=== PATIENT | female | born 1990 | race Caucasian/White ===

== ENCOUNTER → 2020-11-17 12:46 | Outpatient (CLI) | payer BC, SELFPAY ==
[2020-11-17 08:23] VITALS: BMI 28.9
[2020-11-19 20:38] LABS: HPV APTIMA, High Risk Negative (Negative)
== END ==
PROVIDERS: PCP Physician Assistant Medical; Visit Provider Nurse Practitioner Women's Health
DX: Z12.4 Encounter for screening for malignant neoplasm of cervix (principal); N89.8 Other specified noninflammatory disorders of vagina
CPT/HCPCS: 87070; 87205; 87624; 88175; G0145

== ENCOUNTER → 2023-11-08 | Outpatient (CLI) | payer OTHER, SELFPAY ==
--- OUTSIDE RECORDS SUMMARY | 2023-11-08 21:52 | XMS RPT_ITS | CCD ---
Author Name Unknown Address [address] [employer] [facility] [address] [place] [address] Organization [facility] Care Team Providers Care Telesales Manager Name Role Phone Shoaib, Sobeida Admitting Unavailable Shoaib, Sobeida Attending Unavailable OPAL TREVIZO Primary Care Unavailable Kirby Tom Admitting Unavailable Kirby Tom Attending Unavailable OPAL TREVIZO Primary Care Unavailable Shoaib, Sobeida Attending Unavailable OPAL TREVIZO B Primary Care Unavailable Opal Trevizo Unavailable Unavailable Unavailable Opal Trevizo PA-C Primary Care Provider Joseline, Ms. Opal Barrios Referring Unav ailable Joseline, Ms. Opal Barrios Attending Unav ailable Joseline, Ms. Opal Barrios Primary Care Unav ailable Cole, Ms. Amairani Grier Attending Sara vailable Joseline, Ms. Opal Barrios Primary Care Unav ailable Rajesh JOSÉ, Luiz M Unavailable OPAL TREVIZO Attending Unavailable OPAL TREVIZO Primary Care Unavailable OPAL TREVIZO Attending Unavailable OPAL TREVIZO Primary Care Unavailable OPAL TREVIZO Attending Unavailable OPAL TREVIZO B Primary Care Unavailable OPAL TREVIZO B Primary Care Unavailable Allergies Allergy Classification Reported Allergen(s) Allergy Type Date of Onset Reaction(s) Facility (2 sources) Citalopram; Translations: [Citalopram Hydrobromide TABS] Drug Allergy 03-02-[address] [facility] Medicine Work Phone: Medications Current Medications Medication Drug Class(es) Dates Sig (Normalized) Sig (Original) acyclovir 400 mg oral tablet (12 sources) Herpesvirus Nucleoside Analog DNA Polymerase Inhibitor, Herpes Simplex Virus Nucleoside Analog DNA Polymerase Inhibitor, Herpes Zoster Virus Nucleoside Analog DNA Polymerase Inhibitor Start: 09-17-2019 acyclovir (Zovirax) 400 mg tablet Take 1 tablet (400 mg) by mouth. 1 TAB TID PRN 0 09/17/2019 Active busPIRone hydrochloride 10 mg oral tablet (1 source) Start: 07-01-2020 End: 03-02-2021 take 1 tablet by mouth three times daily as needed for anxiety busPIRone HCl - 10 MG Oral Tablet TAKE 1 TABLET 3 times daily PRN anxiety Quantity: 90 Refills: 2 Ordered: 23-Dec-2020 Opal Trevizo PA-C Start : 01-Jul-2020 End : 02-Mar-2021 Complete citalopram 40 mg oral tablet (13 sources) Serotonin Reuptake Inhibitor Start: 09-27-2023 take 1 tablet by mouth once daily citalopram (CeleXA) 40 mg tablet Indications: Situational mixed anxiety and depressive disorder Take 1 tablet (40 mg) by mouth once daily. 30 tablet 11 09/27/2023 Active Completed/Discontinued Medications Medication Drug Class(es) Dates Sig (Normalized) Sig (Original) phentermine hydrochloride 37.5 mg oral tablet (2 sources) Sympathomimetic Amine Anorectic Start: 03-06-2022 take 1 capsule by mouth once daily before breakfast Phentermine HCl - 37.5 MG Oral Tablet TAKE 1 CAPSULE BY MOUTH EVERY DAY IN THE MORNING BEFORE BREAKFAST Quantity: 30 Refills: 0 Ordered: 06-Mar-2022 Luiz Mena MD Start : 06-Mar-2022 Active Problems Active Problems Problem Classification Problem Date Documented Date Episodic/Chronic Adjustment disorders (17 sources) Mixed anxiety and depressive disorder; Translations: [Adjustment disorder with mixed anxiety and depressed mood] Onset: 11-13-2022 03-08-2023 Chronic Contraceptive and procreative management (9 sources) Patient encounter status; Translations: [Unspecified contraceptive management] Episodic Disorders of lipid metabolism (6 sources) Hypercholesterolemia ; Translations: [Pure hypercholesterolemia , unspecified] Onset: 09-27-2023 Resolved: 10-25-2023 09-27-2023 Chronic Headache; including migraine (12 sources) Migraine; Translations: [Migraine, unspecified, without mention of intractable migraine without mention of status migrainosus] Onset: 11-13-2022 11-13-2022 Chronic Nutritional deficiencies (10 sources) Vitamin D deficiency; Translations: [Vitamin D deficiency, unspecified] Onset: 03-08-2023 03-08-2023 Chronic Other female genital disorders (9 sources) History of abnormal cervical Papanicolaou smear ; Translations: [Personal history of other genital system and obstetric disorders] Episodic Past or Other Problems Problem Classification Problem Date Documented Da te Episodic/Chronic Malaise and fatigue (20 sources) Malaise and fatigue; Translations: [Other malaise and fatigue] Onset: 11-13-2022 03-08-2023 Episodic Nutritional deficiencies (8 sources) Decreased vitamin B12 level; Translations: [Deficiency of other specified B group vitamins] Onset: 03-08-2023 03-08-2023 Episodic Other bone disease and musculoskeletal deformities (12 sources) Costal chondritis; Translations: [Tietze's disease] Onset: 11-13-2022 Resolved: 03-08-2023 03-08-2023 Episodic Other nutritional; endocrine; and metabolic disorders (12 sources) Weight gain; Translations: [Abnormal weight gain] Onset: 11-13-2022 11-13-2022 Episodic Residual codes; unclassified (9 sources) Past history of procedure; Translations: [Other postprocedural status] Onset: 11-17-2020 Episodic Results Test Name Value Interpretation Reference Range Facil ity Vital Signs Date Time Vital Sign Value Performing Clinician Ila merritt 10-25-2023 08:24-0500 Body height 157.5 cm Opal Trevizo PA-C Work Phone: [facility] 10-25-2023 08:24-0500 Body mass index (BMI) [Ratio] 37.13 kg/m2 Opal Trevizo PA-C Work Phone: [facility] 10-25-2023 08:24-0500 Body weight 92.08 kg Opal Trevizo PA-C Work Phone: [facility] 10-25-2023 08:24-0500 Diastolic blood pressure 60 mm[Hg] Opal Leicester PA-C Work Phone: [facility] 10-25-2023 08:24-0500 Systolic blood pressure 120 mm[Hg] Opal Joseline PA-C Work Phone: [facility] 09-27-2023 08:09-0500 Body height 157.5 cm Opal Leicester PA-C Work Phone: [facility] 09-27-2023 08:09-0500 Body mass index (BMI) [Ratio] 35.48 kg/m2 Opal Joseline PA-C Work Phone: [facility] 09-27-2023 08:09-0500 Body weight 88 kg Opal Leicester PA-C Work Phone: [facility] 09-27-2023 08:09-0500 Diastolic blood pressure 68 mm[Hg] Opal Joseline PA-C Work Phone: [facility] 09-27-2023 08:09-0500 Heart rate 78 /min Opal Leicester PA-C Work Phone: [facility] 09-27-2023 08:09-0500 SaO2% (BldA) [Mass fraction] 98 % Opal Leicester PA-C Work Phone: [facility] 09-27-2023 08:09-0500 Systolic blood pressure 103 mm[Hg] Opal Joseline PA-C Work Phone: [facility] 03-08-2023 09:21-0400 Body height 157.5 cm Opal Joseline PA-C Work Phone: [facility] 03-08-2023 09:21-0400 Body mass index (BMI) [Ratio] 36.21 kg/m2 Opal Leicester PA-C Work Phone: [facility] 03-08-2023 09:21-0400 Body weight 89.81 kg Opal Joseline PA-C Work Phone: [facility] 03-08-2023 09:21-0400 Diastolic blood pressure 74 mm[Hg] Opal Martinall PA-C Work Phone: [facility] 03-08-2023 09:21-0400 Heart rate 74 /min Opal Martinall PA-C Work Phone: [facility] 03-08-2023 09:21-0400 Systolic blood pressure 108 mm[Hg] Opal Martinall PA-C Work Phone: [facility] 04-10-2022 08:52-0400 Body height 157.48 cm Opal Toney Joseline Work Phone: [facility] Work Phone: 04-10-2022 08:52-0400 Body mass index (BMI) [Ratio] 31.46 kg/m2 Opal Toney Leicester Work Phone: [facility] Work Phone: 04-10-2022 08:52-0400 Body surface area Derived from formula 1.79 m2 Opal Toney Joseline Work Phone: [facility] Work Phone: 04-10-2022 08:52-0400 Body weight 78.02 kg Opal Trevizo Work Phone: [facility] Work Phone: 04-10-2022 08:52-0400 Diastolic blood pressure 74 mm[Hg] Opal Edgeenhall Work Phone: [facility] Work Phone: 04-10-2022 08:52-0400 Heart rate 81 /min Opal Toney MartinLeicester Work Phone: [facility] Work Phone: 04-10-2022 08:52-0400 Systolic blood pressure 108 mm[Hg] Opal Trevizo Work Phone: [facility] Work Phone: 03-06-2022 16:18-0400 Body height 157.48 cm Opal Trevizo Work Phone: [facility] Work Phone: 03-06-2022 16:18-0400 Body mass index (BMI) [Ratio] 31.64 kg/m2 Opal Trevizo Work Phone: [facility] Work Phone: 03-06-2022 16:18-0400 Body surface area Derived from formula 1.8 m2 Opal Trevizo Work Phone: [facility] Work Phone: 03-06-2022 16:18-0400 Body weight 78.47 kg Opal Trevizo Work Phone: [facility] Work Phone: 03-06-2022 16:18-0400 Diastolic blood pressure 68 mm[Hg] Opal Trevizo Work Phone: [facility] Work Phone: 03-06-2022 16:18-0400 Heart rate 70 /min Opal Trevizo Work Phone: [facility] Work Phone: 03-06-2022 16:18-0400 Systolic blood pressure 112 mm[Hg] Opal Trevizo Work Phone: [facility] Work Phone: 02-22-2022 09:55-0400 Body height 157.48 cm Opal Trevizo Work Phone: [facility] Work Phone: 02-22-2022 09:55-0400 Body mass index (BMI) [Ratio] 31.09 kg/m2 Opal Trevizo Work Phone: [facility] Work Phone: 02-22-2022 09:55-0400 Body surface area Derived from formula 1.78 m2 Opal Trevizo Work Phone: [facility] Work Phone: 02-22-2022 09:55-0400 Body weight 77.11 kg Opal Trevizo Work Phone: [facility] Work Phone: 02-22-2022 09:55-0400 Diastolic blood pressure 82 mm[Hg] Opal Trevizo Work Phone: [facility] Work Phone: 02-22-2022 09:55-0400 Heart rate 72 /min Opal Trevizo Work Phone: [facility] Work Phone: 02-22-2022 09:55-0400 Systolic blood pressure 116 mm[Hg] Opal Trevizo Work Phone: [facility] Work Phone: 06-10-2021 08:04-0400 Body height 157.48 cm Opal Trevizo Work Phone: [facility] Work Phone: 06-10-2021 08:04-0400 Body mass index (BMI) [Ratio] 29.45 kg/m2 Opal Trevizo Work Phone: [facility] Work Phone: 06-10-2021 08:04-0400 Body surface area Derived from formula 1.74 m2 Opal Trevizo Work Phone: [facility] Work Phone: 06-10-2021 08:04-0400 Body weight 73.03 kg Opal Trevizo Work Phone: [facility] Work Phone: 06-10-2021 08:04-0400 Diastolic blood pressure 68 mm[Hg] Opal Trevizo Work Phone: [facility] Work Phone: 06-10-2021 08:04-0400 Heart rate 72 /min Opal Trevizo Work Phone: [facility] Work Phone: 06-10-2021 08:04-0400 Systolic blood pressure 100 mm[Hg] Opal Trevizo Work Phone: [facility] Work Phone: 03-02-2021 08:47-0400 Body height 157.48 cm Opal Trevizo Work Phone: [facility] Work Phone: 03-02-2021 08:47-0400 Body mass index (BMI) [Ratio] 28.9 kg/m2 Opal Trevizo Work Phone: [facility] Work Phone: 03-02-2021 08:47-0400 Body surface area Derived from formula 1.73 m2 Opal Trevizo Work Phone: [facility] Work Phone: 03-02-2021 08:47-0400 Body weight 71.67 kg Opal Trevizo Work Phone: [facility] Work Phone: 03-02-2021 08:47-0400 Diastolic blood pressure 70 mm[Hg] Opal Trevizo Work Phone: [facility] Work Phone: 03-02-2021 08:47-0400 Heart rate 60 /min Opal Martinall Work Phone: [facility] Work Phone: 03-02-2021 08:47-0400 SaO2% (BldA) [Mass fraction] 96 % Opal Trevizo Work Phone: [facility] Work Phone: 03-02-2021 08:47-0400 Systolic blood pressure 110 mm[Hg] Opal Trevizo Work Phone: [facility] Work Phone: Encounters Encounter Date Encounter Type Care Provider Facility Start: 10-25-2023 End: 10-25-2023 ambulatory OPAL Ziegler [facility] Ambulatory Start: 10-25-2023 End: 10-25-2023 Office outpatient visit 25 minutes Opal Ziegler Joseline GORDONC Work Phone: [facility] Internal Medicine Procedures Date Procedure Procedure Detail Performing Clinician Start: 10-23-2023 CBC W Auto Different ial panel - Blood OPALJAS EDGEJOSELINE Start: 10-23-2023 Comprehensive metabo lic 2000 panel - Serum or Plasma OPAL EDGEENHALL Start: 10-23-2023 Cyanocobalamin vitamin b-12 OPAL TREVIZO Start: 10-23-2023 Lipid panel OPAL TO DENHALL Start: 10-23-2023 Magnesium [Mass/volu me] in Serum or Plasma OPAL EDGEENHALL Start: 10-23-2023 THYROXINE, FREE OPAL MARTINALL Start: 10-23-2023 VITAMIN D 25-HYDROXY,TOTAL OPAL EDGEENHALL Start: 10-23-2023 Lipid 1996 panel - S addison or Plasma Opal Trevizo PA-C Work Phone: Start: 10-23-2023 Thyrotropin [Units/v olume] in Serum or Plasma Oapl Trevizo PA-C Work Phone: Start: 03-08-2023 Lipid 1996 panel - S addison or Plasma Opal Trevizo PA-C Work Phone: Start: 06-07-2021 Lipid 1995 panel - S addison or Plasma Opal Trevizo PA-C Work Phone: Start: 11-17-2020 Microscopic observat ion [Identifier] in Cervix by Cyto stain Opal Trevizo PA-C Work Phone: Colposcopy Opal penn Work Phone: Plan of Treatment Date Care Activity Detail Author Start: 2040 Zoster Vaccines (1 of 2) Zoste r Vaccines (1 of 2) [facility] Start: 10-23-2028 Lipid panel Lipid Panel [facility] Start: 03-08-2028 Lipid panel Lipid Panel [facility] Start: 06-07-2026 Lipid panel Lipid Panel [facility] Start: 10-23-2024 Thyroid stimulating hormone measurement TSH Level [facility] Start: 03-09-2024 Yearly Adult Physical Yearly Adult P hysical [facility] Start: 01-29-2024 End: 01-29-2024 Patient encounter procedure 01/29/2024 8:00 AM EDT Office Visit [facility] [address] [place] [id number] Opal Trevizo PA-C [address] [place] [address] [facility] Start: 01-23-2024 End: 10-24-2024 25-hydroxyvitamin D3 [Mass/volume] in Serum or Plasma Vitamin D 25-Hydroxy,Total (for eval of Vitamin D levels) Lab Routine Vitamin D deficiency Expected: 01/23/2024 (Approximate), Expires: 10/24/2024 [facility] Work Phone: Immunizations Immunization Date Immunization Notes Care Provider Fa cility 01-20-2021 Moderna COVID-19 Vaccine 100 MCG/0.5ML Intramuscular Suspension Opal Trevizo Work Phone: [facility] 12-22-2020 Moderna COVID-19 Vaccine 100 MCG/0.5ML Intramuscular Suspension Opal Trevizo Work Phone: [facility] Work Phone: Payers Date Payer Category Payer Private Health Insurance [employer] [id number] 2023-Present [id number] [place] [id number] 2023 Private Health Insurance [id number] 2019 Unknown [id number] 2018 Unknown 1990 Unknown [id number] 1990 Unknown [id number] 1990 Unknown [id number] 1990 Unknown [id number] 1990 Unknown [id number] 1990 Unknown [id number] 1990 Unknown [id number] 1990 Unknown [id number] 1990 Unknown [id number] Social History Date Type Detail Facility Start: 03-08-2023 End: 09-27-2023 Non-smoker Non-smoker [facility] Start: 11-13-2022 Tobacco smoking stat [facility] Never smoked tobacco [facility] Work Phone: Start: 11-13-2022 Tobacco use and exposure Smokeless tobacco non-user [facility] Work Phone: Start: 03-08-2023 End: 10-25-2023 Alcohol intake Lifetime non-drinker (finding) [facility] Work Phone: Start: 03-08-2023 End: 09-27-2023 Tobacco use panel [facility] Start: 1990 Sex Assigned At Not on file [facility] Work Phone: Start: 02-26-2023 End: 10-25-2023 Exposure to SARS-CoV-2 (event) Not sure [facility] History of Present illness Narrative 10-25-2023 Opal Trevizo PA-C - 10/25/2023 8:20 AM EST Note Date & Type Note Facility 10-25-2023 History of Present illness Narrative Subjective Patient ID: Ariana Ash is a 33 y.o. female who presents for Follow-up (1 MONTH FOLLOW UP) HPI -Labs - - med check herpes -stable on acyclovir prn. - denies needing new script mood celexa - doing well - Vit D - 1/week B12 - stop x 1-2 mo and then consider starting few times/week -Preventative Testing y PAP - Following with [facility] last PAP -2021- Dang Balderrama - [facility] Mammo- fam hx of breast Cancer but in older age - suggest age 40 DEXA - suggest 55 Colonoscopy - Suggest age 45-50 Fall - No AUG 2023 PHQ2 - No Aug 2023 -Other Providers [facility] - [facility]ang Balderrama EYE- visit set in Mar - follows annually Dentist - every 6 months Patient Active Problem List Diagnosis Borderline high cholesterol Herpes simplex Malaise and fatigue Migraine Situational mixed anxiety and depressive disorder Weight gain Low vitamin B12 level Vitamin D deficiency Class 2 obesity due to excess calories without serious comorbidity with body mass index (BMI) of 35.0 to 35.9 in adult Review of Systems Constitutional: Positive for fatigue. Negative for chills and fever. HENT: Negative for congestion, rhinorrhea, sinus pain, sore throat and tinnitus. Eyes: Negative for discharge, redness and visual disturbance. Respiratory: Negative for cough, chest tightness, shortness of breath and wheezing. Cardiovascular: Negative for chest pain, palpitations and leg swelling. Gastrointestinal: Negative for abdominal pain, constipation, diarrhea, nausea and vomiting. Endocrine: Negative for cold intolerance and heat intolerance. Genitourinary: Negative for flank pain, frequency and urgency. Musculoskeletal: Negative for back pain, gait problem and neck pain. Skin: Negative for rash and wound. Neurological: Negative for dizziness, tremors, syncope, numbness and headaches. Hematological: Does not bruise/bleed easily. Psychiatric/Behavioral: Positive for dysphoric mood. Negative for confusion, sleep disturbance and suicidal ideas. The patient is nervous/anxious. Past Medical History: Diagnosis Date Encounter for gynecological examination (general) (routine) without abnormal findings Pap test, as part of routine gynecological examination High thyroid stimulating hormone (TSH) level 10/25/2023 Hypercholesterolemia 10/25/2023 Other conditions influencing health status Menarche Other specified postprocedural states History of Papanicolaou smear Personal history of other diseases of the female genital tract History of abnormal cervical Papanicolaou smear Past Surgical History: Procedure Laterality Date COLPOSCOPY 11/22/2012 Family History Problem Relation Name Age of Onset Thyroid disease Mother No Known Problems Father Emphysema Other Breast cancer Other Social History Tobacco Use Smoking status: Never Smokeless tobacco: Never Vaping Use Vaping Use: Never used Substance Use Topics Alcohol use: Never Drug use: Never No Known Allergies Current Outpatient Medications Medication Sig Dispense Refill acyclovir (Zovirax) 400 mg tablet Take 1 tablet (400 mg) by mouth. 1 TAB TID PRN citalopram (CeleXA) 40 mg tablet Take 1 tablet (40 mg) by mouth once daily. 30 tablet 11 cyanocobalamin (Vitamin B-12) 1,000 mcg tablet Take 1 tablet (1,000 mcg) by mouth once daily. 30 tablet 11 ergocalciferol (Vitamin D-2) 1.25 MG (91583 UT) capsule Take 1 capsule (50,000 Units) by mouth 1 (one) time per week. 5 capsule 11 No current facility-administered medications for this visit. Objective BP 120/60 Ht 1.575 m (5' 2 ) Wt 92.1 kg (203 lb) BMI 37.13 kg/m Physical Exam Vitals reviewed. Constitutional: Appearance: Normal appearance. She is obese. HENT: Head: Normocephalic. Right Ear: External ear normal. Left Ear: External ear normal. Nose: Nose normal. No congestion or rhinorrhea. Mouth/Throat: Mouth: Mucous membranes are moist. Eyes: Extraocular Movements: Extraocular movements intact. Conjunctiva/sclera: Conjunctivae normal. Pupils: Pupils are equal, round, and reactive to light. Cardiovascular: Rate and Rhythm: Normal rate and regular rhythm. Pulses: Normal pulses. Pulmonary: Effort: Pulmonary effort is normal. Breath sounds: Normal breath sounds. Abdominal: General: Bowel sounds are normal. Palpations: Abdomen is soft. Tenderness: There is no abdominal tenderness. There is no right CVA tenderness or left CVA tenderness. Musculoskeletal: General: No tenderness. Normal range of motion. Cervical back: Normal range of motion and neck supple. No tenderness. Skin: General: Skin is warm and dry. Neurological: General: No focal deficit present. Mental Status: She is alert and oriented to person, place, and time. Psychiatric: Mood and Affect: Mood normal. Behavior: Behavior normal. Testing Component Latest Ref [facility] 10/23/2023 WBC 4.4 - 11.3 x10*3/uL 8.9 nRBC 0.0 - 0.0 /100 WBCs 0.0 RBC 4.00 - 5.20 x10*6/uL 4.72 HEMOGLOBIN 12.0 - 16.0 g/dL 13.5 HEMATOCRIT 36.0 - 46.0 % 41.1 MCV 80 - 100 fL 87 MCH 26.0 - 34.0 pg 28.6 MCHC 32.0 - 36.0 g/dL 32.8 RED CELL DISTRIBUTION WIDTH 11.5 - 14.5 % 12.7 Platelets 150 - 450 x10*3/uL 390 Neutrophils % 40.0 - 80.0 % 58.8 Immature Granulocytes %, Automated 0.0 - 0.9 % 0.6 Lymphocytes % 13.0 - 44.0 % 26.5 Monocytes % 2.0 - 10.0 % 7.7 Eosinophils % 0.0 - 6.0 % 5.5 Basophils % 0.0 - 2.0 % 0.9 Neutrophils Absolute 1.20 - 7.70 x10*3/uL 5.25 Immature Granulocytes Absolute, Automated 0.00 - 0.70 x10*3/uL 0.05 Lymphocytes Absolute 1.20 - 4.80 x10*3/uL 2.37 Monocytes Absolute 0.10 - 1.00 x10*3/uL 0.69 Eosinophils Absolute 0.00 - 0.70 x10*3/uL 0.49 Basophils Absolute 0.00 - 0.10 x10*3/uL 0.08 GLUCOSE 74 - 99 mg/dL 87 SODIUM 136 - 145 mmol/L 138 POTASSIUM 3.5 - 5.3 mmol/L 4.2 CHLORIDE 98 - 107 mmol/L 103 Bicarbonate 21 - 32 mmol/L 26 Anion Gap 10 - 20 mmol/L 13 Blood Urea Nitrogen 6 - 23 mg/dL 18 Creatinine 0.50 - 1.05 mg/dL 0.71 EGFR >60 mL/min/1.73m*2 >90 Calcium 8.6 - 10.3 mg/dL 8.9 Albumin 3.4 - 5.0 g/dL 4.1 Alkaline Phosphatase 33 - 110 U/L 62 Total Protein 6.4 - 8.2 g/dL 6.9 AST 9 - 39 U/L 20 Bilirubin Total 0.0 - 1.2 mg/dL 0.3 ALT 7 - 45 U/L 18 CHOLESTEROL 0 - 199 mg/dL 193 HDL CHOLESTEROL mg/dL 60.0 Cholesterol/HDL Ratio 3.2 LDL Calculated <=99 mg/dL 115 (H) VLDL 0 - 40 mg/dL 18 TRIGLYCERIDES 0 - 149 mg/dL 91 Non HDL Cholesterol 0 - 149 mg/dL 133 Vitamin B12 211 - 911 pg/mL 1,235 (H) Vitamin D, 25-Hydroxy, Total 30 - 100 ng/mL 36 Thyroid Stimulating Hormone 0.44 - 3.98 mIU/L 4.64 (H) Thyroxine, Free 0.61 - 1.12 ng/dL 0.56 (L) MAGNESIUM 1.60 - 2.40 mg/dL 2.03 Impression MDM 1) COMPLEXITY: MORE THAN 1 STABLE CHRONIC CONDITION ADDRESSED 2)DATA: TESTS INTERPRETED AND OR ORDERED, TOOK INDEPENDENT HISTORY OR RECORDS REVIEWED 3)RISK: MODERATE RISK DUE TO NATURE OF MEDICAL CONDITIONS/COMORBIDITY OR MEDICATIONS ORDERED OR SURGICAL OR PROCEDURE REFERRAL, . Reviewed labs and Testing on file Patient to follow diet low in cholesterol, fat, and sodium. Patient is advised to increase Exercise. Patient is recommended to lose weight. Reviewed Meds and discussed common side effects Continue as directed Thyroid - improved but still off and given symptoms would like to do a trial start of meds B12 - hold meds x few mo then start every other day Mood - cont on meds Patient is strongly advised to be compliant with recommendations. Return to Clinic sooner if needed. Patient denies further questions/concerns at this time Assessment/Plan Problem List Items Addressed This Visit ICD-10-CM Situational mixed anxiety and depressive disorder F43.23 Low vitamin B12 level R79.89 Relevant Orders Vitamin B12 Vitamin D deficiency E55.9 Relevant Orders Vitamin D 25-Hydroxy,Total (for eval of Vitamin D levels) Class 2 obesity due to excess calories without serious comorbidity with body mass index (BMI) of 37.0 to 37.9 in adult E66.09, Z68.37 Acquired hypothyroidism - Primary E03.9 Relevant Medications levothyroxine (Synthroid, Levoxyl) 25 mcg tablet Other Relevant Orders Thyroid Stimulating Hormone Thyroxine, Free FU in 3-4 mo with labs and med check documented in this encounter [facility] Work Phone: History of Present illness Narrative 09-27-2023 Opal Trevizo PA-C - 09/27/2023 8:00 AM EST Note Date & Type Note Facility 09-27-2023 History of Present illness Narrative Subjective Patient ID: Ariana Ash is a 33 y.o. female who presents for Follow-up (6 MONTH F/U WITH LABS. NO CONCERNS) HPI -Labs - not done - she did do labs the same day as her last visit and states not all labs were processed at that time - med check herpes -stable on acyclovir prn. - denies needing new script mood celexa - doing well - has been taking 20 mg and would like to inc Vit D B12 - -Preventative Testing y PAP - Following with [facility] last PAP -2021- Dang Balderrama - [place] [facility]- fam hx of breast Cancer but in older age - suggest age 40 DEXA - suggest 55 Colonoscopy - Suggest age 45-50 Fall - No AUG 2023 PHQ2 - No Aug 2023 -Other Providers [facility] - [facility]ang Balderrama EYE- visit set in Mar - follows annually Dentist - every 6 months Patient Active Problem List Diagnosis Borderline high cholesterol Herpes simplex Malaise and fatigue Migraine Situational mixed anxiety and depressive disorder Weight gain Low vitamin B12 level Vitamin D deficiency Class 2 obesity due to excess calories without serious comorbidity with body mass index (BMI) of 36.0 to 36.9 in adult Review of Systems Constitutional: Positive for fatigue. Negative for chills and fever. HENT: Negative for congestion, rhinorrhea, sinus pain, sore throat and tinnitus. Eyes: Negative for discharge, redness and visual disturbance. Respiratory: Negative for cough, chest tightness, shortness of breath and wheezing. Cardiovascular: Negative for chest pain, palpitations and leg swelling. Gastrointestinal: Negative for abdominal pain, constipation, diarrhea, nausea and vomiting. Endocrine: Negative for cold intolerance and heat intolerance. Genitourinary: Negative for flank pain, frequency and urgency. Musculoskeletal: Negative for back pain, gait problem and neck pain. Skin: Negative for rash and wound. Neurological: Negative for dizziness, tremors, syncope, numbness and headaches. Hematological: Does not bruise/bleed easily. Psychiatric/Behavioral: Positive for dysphoric mood. Negative for confusion, sleep disturbance and suicidal ideas. The patient is nervous/anxious. Past Medical History: Diagnosis Date Encounter for gynecological examination (general) (routine) without abnormal findings Pap test, as part of routine gynecological examination Other conditions influencing health status Menarche Other specified postprocedural states History of Papanicolaou smear Personal history of other diseases of the female genital tract History of abnormal cervical Papanicolaou smear Past Surgical History: Procedure Laterality Date COLPOSCOPY 11/22/2012 Family History Problem Relation Name Age of Onset Thyroid disease Mother No Known Problems Father Emphysema Other Breast cancer Other Social History Tobacco Use Smoking status: Never Smokeless tobacco: Never Vaping Use Vaping Use: Never used Substance Use Topics Alcohol use: Never Drug use: Never No Known Allergies Current Outpatient Medications Medication Sig Dispense Refill acyclovir (Zovirax) 400 mg tablet Take 1 tablet (400 mg) by mouth. 1 TAB TID PRN citalopram (CeleXA) 10 mg tablet Take 1 tablet (10 mg) by mouth once daily. 30 tablet 11 cyanocobalamin (Vitamin B-12) 1,000 mcg tablet Take 1 tablet (1,000 mcg) by mouth once daily. 30 tablet 11 ergocalciferol (Vitamin D-2) 1.25 MG (19532 UT) capsule Take 1 capsule (50,000 Units) by mouth 1 (one) time per week. 5 capsule 11 No current facility-administered medications for this visit. Objective BP 103/68 Pulse 78 Ht 1.575 m (5' 2 ) Wt 88 kg (194 lb) SpO2 98% BMI 35.48 kg/m Physical Exam Vitals reviewed. Constitutional: Appearance: Normal appearance. She is obese. HENT: Head: Normocephalic. Right Ear: External ear normal. Left Ear: External ear normal. Nose: Nose normal. No congestion or rhinorrhea. Mouth/Throat: Mouth: Mucous membranes are moist. Eyes: Extraocular Movements: Extraocular movements intact. Conjunctiva/sclera: Conjunctivae normal. Pupils: Pupils are equal, round, and reactive to light. Cardiovascular: Rate and Rhythm: Normal rate and regular rhythm. Pulses: Normal pulses. Pulmonary: Effort: Pulmonary effort is normal. Breath sounds: Normal breath sounds. Abdominal: General: Bowel sounds are normal. Palpations: Abdomen is soft. Tenderness: There is no abdominal tenderness. There is no right CVA tenderness or left CVA tenderness. Musculoskeletal: General: No tenderness. Normal range of motion. Cervical back: Normal range of motion and neck supple. No tenderness. Skin: General: Skin is warm and dry. Neurological: General: No focal deficit present. Mental Status: She is alert and oriented to person, place, and time. Psychiatric: Mood and Affect: Mood normal. Behavior: Behavior normal. Testing Component Latest Ref [facility] 03/08/2023 WBC 4.4 - 11.3 x10E9/L 7.9 RBC 4.00 - 5.20 x10E12/L 4.97 HEMOGLOBIN 12.0 - 16.0 g/dL 14.2 HEMATOCRIT 36.0 - 46.0 % 44.2 MCV 80 - 100 fL 89 MCHC 32.0 - 36.0 g/dL 32.1 Platelets 150 - 450 x10E9/L 354 RED CELL DISTRIBUTION WIDTH 11.5 - 14.5 % 12.8 Neutrophils % 40.0 - 80.0 % 55.1 Immature Granulocytes %, Automated 0.0 - 0.9 % 0.8 Lymphocytes % 13.0 - 44.0 % 30.2 Monocytes % 2.0 - 10.0 % 8.8 Eosinophils % 0.0 - 6.0 % 4.2 Basophils % 0.0 - 2.0 % 0.9 Neutrophils Absolute 1.20 - 7.70 x10E9/L 4.35 Lymphocytes Absolute 1.20 - 4.80 x10E9/L 2.38 Monocytes Absolute 0.10 - 1.00 x10E9/L 0.69 Eosinophils Absolute 0.00 - 0.70 x10E9/L 0.33 Basophils Absolute 0.00 - 0.10 x10E9/L 0.07 GLUCOSE 74 - 99 mg/dL 86 SODIUM 136 - 145 mmol/L 136 POTASSIUM 3.5 - 5.3 mmol/L 4.5 CHLORIDE 98 - 107 mmol/L 104 Bicarbonate 21 - 32 mmol/L 26 Anion Gap 10 - 20 mmol/L 11 Blood Urea Nitrogen 6 - 23 mg/dL 21 Creatinine 0.50 - 1.05 mg/dL 0.70 GFR Female >90 mL/min/1.73m2 >90 Calcium 8.6 - 10.3 mg/dL 9.5 Albumin 3.4 - 5.0 g/dL 4.5 Alkaline Phosphatase 33 - 110 U/L 57 Total Protein 6.4 - 8.2 g/dL 7.3 AST 9 - 39 U/L 20 Bilirubin Total 0.0 - 1.2 mg/dL 0.3 ALT 7 - 45 U/L 18 CHOLESTEROL 0 - 199 mg/dL 219 (H) HDL CHOLESTEROL mg/dL 67.0 Cholesterol/HDL Ratio 3.3 LDL Calculated 0 - 99 mg/dL 132 (H) VLDL 0 - 40 mg/dL 20 TRIGLYCERIDES 0 - 149 mg/dL 99 IRON 35 - 150 ug/dL 72 TIBC 240 - 445 ug/dL 423 % Saturation 25 - 45 % 17 (L) Hemoglobin A1C % 5.3 Estimated Average Glucose MG/DL 105 Vitamin D, 25-Hydroxy, Total ng/mL 31 FOLATE >5.0 ng/mL 16.6 Vitamin B12 211 - 911 pg/mL 358 FERRITIN 8 - 150 ug/L 81 Insulin 3 - 25 uIU/mL 20 Thyroxine 4.5 - 11.1 ug/dL 6.0 Triiodothyronine 60 - 200 ng/dL 148 Thyroid Stimulating Hormone 0.44 - 3.98 mIU/L 6.23 (H) Thyroxine, Free 0.61 - 1.12 ng/dL 0.60 (L) Impression MDM 1) COMPLEXITY: MORE THAN 1 STABLE CHRONIC CONDITION ADDRESSED 2)DATA: TESTS INTERPRETED AND OR ORDERED, TOOK INDEPENDENT HISTORY OR RECORDS REVIEWED 3)RISK: MODERATE RISK DUE TO NATURE OF MEDICAL CONDITIONS/COMORBIDITY OR MEDICATIONS ORDERED OR SURGICAL OR PROCEDURE REFERRAL, . Reviewed labs and Testing on file Patient to follow diet low in cholesterol, fat, and sodium. Patient is advised to increase Exercise. Patient is recommended to lose weight. Reviewed Meds and discussed common side effects Continue as directed Advised we get updated labs given thyroid labs and some of her symptoms Recheck vit levels since starting supplement Celexa - inc to 40 Patient is strongly advised to be compliant with recommendations. Return to Clinic sooner if needed. Patient denies further questions/concerns at this time Assessment/Plan Problem List Items Addressed This Visit ICD-10-CM Situational mixed anxiety and depressive disorder F43.23 Relevant Medications citalopram (CeleXA) 40 mg tablet Low vitamin B12 level R79.89 Relevant Orders Vitamin B12 Vitamin D deficiency - Primary E55.9 Relevant Orders Vitamin D 25-Hydroxy,Total (for eval of Vitamin D levels) Class 2 obesity due to excess calories without serious comorbidity with body mass index (BMI) of 35.0 to 35.9 in adult E66.09, Z68.35 Other Visit Diagnoses Codes Hypercholesteremia E78.00 Relevant Orders CBC and Auto Differential Comprehensive Metabolic Panel Lipid Panel Thyroid Stimulating Hormone Thyroxine, Free Magnesium Vitamin B12 Vitamin D 25-Hydroxy,Total (for eval of Vitamin D levels) Elevated TSH R79.89 Relevant Orders Thyroid Stimulating Hormone Thyroxine, Free FU in 1-4 weeks with labs at [facility] fasting and med check documented in this encounter [facility] Work Phone: History of Present illness Narrative 03-08-2023 Opal Trevizo PA-C - 03/08/2023 9:20 AM EDT Note Date & Type Note Facility 03-08-2023 History of Present illness Narrative Subjective Patient ID: Ariana Ash is a 32 y.o. female who presents for annual wellness (Rev labs ) HPI Wellness -Labs - med check herpes -stable on acyclovir prn. - denies needing new script mood celexa - doing well -Preventative Testing y PAP - Following with [facility] last PAP -2021- Dang Valencias - [place] [facility]- fam hx of breast Cancer but in older age - suggest age 40 DEXA - suggest 55 Colonoscopy - Suggest age 45-50 Fall - No February 2023 PHQ2 - No February 2023 -Other Providers [facility] - [facility] Balderrama E[facility]- visit set in Mar - follows annually Dentist - every 6 months -Vaccinations Flu - declines PNA- suggest age 65 Tdap -2018? Hep B - low risk MMR - vaccine as a child Shingles - suggest age 50 Covid - first 2 shots Patient Active Problem List Diagnosis Borderline high cholesterol Costochondritis, acute Herpes simplex Malaise and fatigue Migraine Situational mixed anxiety and depressive disorder Weight gain Review of Systems Constitutional: Positive for fatigue. Negative for chills and fever. HENT: Negative for congestion, rhinorrhea, sinus pain, sore throat and tinnitus. Eyes: Negative for discharge, redness and visual disturbance. Respiratory: Negative for cough, chest tightness, shortness of breath and wheezing. Cardiovascular: Negative for chest pain, palpitations and leg swelling. Gastrointestinal: Negative for abdominal pain, constipation, diarrhea, nausea and vomiting. Endocrine: Negative for cold intolerance and heat intolerance. Genitourinary: Negative for flank pain, frequency and urgency. Musculoskeletal: Negative for back pain, gait problem and neck pain. Skin: Negative for rash and wound. Neurological: Negative for dizziness, tremors, syncope, numbness and headaches. Hematological: Does not bruise/bleed easily. Psychiatric/Behavioral: Negative for confusion, sleep disturbance and suicidal ideas. Past Medical History: Diagnosis Date Encounter for gynecological examination (general) (routine) without abnormal findings Pap test, as part of routine gynecological examination Other conditions influencing health status Menarche Other specified postprocedural states History of Papanicolaou smear Personal history of other diseases of the female genital tract History of abnormal cervical Papanicolaou smear Past Surgical History: Procedure Laterality Date COLPOSCOPY 11/22/2012 Family History Problem Relation Name Age of Onset Thyroid disease Mother No Known Problems Father Emphysema Other Breast cancer Other Social History Tobacco Use Smoking status: Never Smokeless tobacco: Never Substance Use Topics Alcohol use: Never Drug use: Never No Known Allergies Current Outpatient Medications Medication Sig Dispense Refill acyclovir (Zovirax) 400 mg tablet Take 1 tablet (400 mg) by mouth. 1 TAB TID PRN citalopram (CeleXA) 10 mg tablet Take 1 tablet (10 mg) by mouth once daily. 30 tablet 0 No current facility-administered medications for this visit. Objective BP 108/74 (BP Location: Left arm, Patient Position: Sitting) Pulse 74 Ht 1.575 m (5' 2 ) Wt 89.8 kg (198 lb) BMI 36.21 kg/m Physical Exam Vitals reviewed. Constitutional: Appearance: Normal appearance. She is obese. HENT: Head: Normocephalic. Right Ear: External ear normal. Left Ear: External ear normal. Nose: Nose normal. No congestion or rhinorrhea. Mouth/Throat: Mouth: Mucous membranes are moist. Eyes: Extraocular Movements: Extraocular movements intact. Conjunctiva/sclera: Conjunctivae normal. Pupils: Pupils are equal, round, and reactive to light. Cardiovascular: Rate and Rhythm: Normal rate and regular rhythm. Pulses: Normal pulses. Pulmonary: Effort: Pulmonary effort is normal. Breath sounds: Normal breath sounds. Abdominal: General: Bowel sounds are normal. Palpations: Abdomen is soft. Tenderness: There is no abdominal tenderness. There is no right CVA tenderness or left CVA tenderness. Musculoskeletal: General: No tenderness. Normal range of motion. Cervical back: Normal range of motion and neck supple. No tenderness. Skin: General: Skin is warm and dry. Neurological: General: No focal deficit present. Mental Status: She is alert and oriented to person, place, and time. Psychiatric: Mood and Affect: Mood normal. Behavior: Behavior normal. Testing Component Latest Ref [facility] 03/08/2023 WBC 4.4 - 11.3 x10E9/L 7.9 RBC 4.00 - 5.20 x10E12/L 4.97 HEMOGLOBIN 12.0 - 16.0 g/dL 14.2 HEMATOCRIT 36.0 - 46.0 % 44.2 MCV 80 - 100 fL 89 MCHC 32.0 - 36.0 g/dL 32.1 Platelets 150 - 450 x10E9/L 354 RED CELL DISTRIBUTION WIDTH 11.5 - 14.5 % 12.8 Neutrophils % 40.0 - 80.0 % 55.1 Immature Granulocytes %, Automated 0.0 - 0.9 % 0.8 Lymphocytes % 13.0 - 44.0 % 30.2 Monocytes % 2.0 - 10.0 % 8.8 Eosinophils % 0.0 - 6.0 % 4.2 Basophils % 0.0 - 2.0 % 0.9 Neutrophils Absolute 1.20 - 7.70 x10E9/L 4.35 Lymphocytes Absolute 1.20 - 4.80 x10E9/L 2.38 Monocytes Absolute 0.10 - 1.00 x10E9/L 0.69 Eosinophils Absolute 0.00 - 0.70 x10E9/L 0.33 Basophils Absolute 0.00 - 0.10 x10E9/L 0.07 Hemoglobin A1C % 5.3 Estimated Average Glucose MG/DL 105 Vitamin D, 25-Hydroxy, Total ng/mL 31 FOLATE >5.0 ng/mL 16.6 Vitamin B12 211 - 911 pg/mL 358 Impression MDM 1) COMPLEXITY: MORE THAN 1 STABLE CHRONIC CONDITION ADDRESSED 2)DATA: TESTS INTERPRETED AND OR ORDERED, TOOK INDEPENDENT HISTORY OR RECORDS REVIEWED 3)RISK: MODERATE RISK DUE TO NATURE OF MEDICAL CONDITIONS/COMORBIDITY OR MEDICATIONS ORDERED OR SURGICAL OR PROCEDURE REFERRAL, . Reviewed labs and Testing on file Patient to follow diet low in cholesterol, fat, and sodium. Patient is advised to increase Exercise. Patient is recommended to lose weight. Reviewed Meds and discussed common side effects Continue as directed Vit D - start weekly supplement and repeat in 3-6 mo B12 - start daily supplement and repeat in 3-6 mo Cont with specialists Pt to call for remaining lab results that were not back - CMP and lipid Aim for wellness in 1 year if approp based on labs Patient is strongly advised to be compliant with recommendations. Return to Clinic sooner if needed. Patient denies further questions/concerns at this time Assessment/Plan Problem List Items Addressed This Visit Malaise and fatigue Situational mixed anxiety and depressive disorder Relevant Medications citalopram (CeleXA) 10 mg tablet Low vitamin B12 level Relevant Medications cyanocobalamin (Vitamin B-12) 1,000 mcg tablet Other Relevant Orders Vitamin B12 Vitamin D deficiency Relevant Medications ergocalciferol (Vitamin D-2) 1.25 MG (77850 UT) capsule Other Relevant Orders Vitamin D, Total Class 2 obesity due to excess calories without serious comorbidity with body mass index (BMI) of 36.0 to 36.9 in adult Other Visit Diagnoses Encounter for wellness examination in adult - Primary FU in 6 mo with labs at [facility] non fasting documented in this encounter [facility] Work Phone: History of Present illness Narrative 02-22-2022 Note Date & Type Note Facility 02-22-2022 History of Present illness Narrative Patient presents today for...1 med checkherpes -stable on acyclovir prn. - denies needing new scriptmoodcelexa - doing well2 wt gain x 4-5 [id number] lbshe denies change in diet and ex and she does work out routinelyshe denies labs being done recentlyshe is working on diet and ex and states has lost a few lbshe did follow a diet and lost weight but has gained it back and in the past month has gained another 10 lb s -[facility] Work Phone: Evaluation note Note Date & Type Note Facility documented in this encounter [facility] Work Phone: Evaluation note Note Date & Type Note Facility documented in this encounter [facility] Work Phone: Evaluation note Note Date & Type Note Facility documented in this encounter [facility] Work Phone: History of Present illness Narrative Note Date & Type Note Facility History of Present illness Narrative Patient presents today for...1 to Review labsnot done2 med checkherpes -stable on acyclovir prn.BCP - stable on meds and following with [facility] -dr pryorpt denies hx of anxiety or depression but states she is anxious, jumpy and notes changes in behavior and overwhelmed with stress at work and the world situationshe denies being on meds in the past for moodshe was started on celexa and buspar jun 2020she was doing well with these meds but has been out of buspar for a whilept states she started taking the buspar and this made her dizzy and nauseous so she stopped and started taking and old dose of celexa and feels like things are started to settle down2 L sided pain x 1 mopt states located under her ribs and aggravated with cough sneezingcan radiate into her backpt denies any recent illnesspt denies any known heavy lifting but she does work out and liftsshe questioned if she pulled something and rested it but states not any better- getting worsept denies any known aggravation with food, no N/V or BM changes, no feverpt denies hx fo allergies or underlying dx of asthma/COPDpt denies trying topicals, ice/heat, ibuprofen, or tylenol3 wt gain x 4-5 [id number] lbshe denies change in diet and ex and she does work out routinelyshe denies labs being done recently [facility] Work Phone: History of Present illness Narrative Note Date & Type Note Facility History of Present illness Narrative OPAL TREVIZO, LOUISA PATIENT THAT Presents today for 3 MONTH SA LAB F/U. NO NEW COMPLAINTSLDL- SLIGHTLY ELEVATED. DIET MODIFICATIONS DISCUSSEDANXIETY/DEPRESSION- STABLE. MED REFILL [facility] Work Phone: History of Present illness Narrative Note Date & Type Note Facility History of Present illness Narrative C/O WEIGHT GAIN, HAS TRIED DIET AND EXERCISE AND FAILED [facility] Work Phone: Summary Purpose Family History No Family History Records FoundUnknown Family Member Name Dates Details Family history of thyroid di sease: Mother(V18.19, Z83.49) Status:Active No pertinent family history: Father(V49.89, Z78.9) Status:Active Family history of emphysema: Grandparent(V17.6, Z82.5) Status:Active Family history of malignant neoplasm of female breast: Grandparent(V16.3, Z80.3) Status:Active Unknown Family Member Name Dates Details Family history of thyroid di sease: Mother(V18.19, Z83.49) Status:Active No pertinent family history: Father(V49.89, Z78.9) Status:Active Family history of emphysema: Grandparent(V17.6, Z82.5) Status:Active Family history of malignant neoplasm of female breast: Grandparent(V16.3, Z80.3) Status:Active Unknown Family Member Name Dates Details Family history of thyroid di sease: Mother(V18.19, Z83.49) Status:Active No pertinent family history: Father(V49.89, Z78.9) Status:Active Family history of emphysema: Grandparent(V17.6, Z82.5) Status:Active Family history of malignant neoplasm of female breast: Grandparent(V16.3, Z80.3) Status:Active Unknown Family Member Name Dates Details Family history of thyroid di sease: Mother(V18.19, Z83.49) Status:Active No pertinent family history: Father(V49.89, Z78.9) Status:Active Family history of emphysema: Grandparent(V17.6, Z82.5) Status:Active Family history of malignant neoplasm of female breast: Grandparent(V16.3, Z80.3) Status:Active Unknown Family Member Name Dates Details Family history of thyroid di sease: Mother(V18.19, Z83.49) Status:Active No pertinent family history: Father(V49.89, Z78.9) Status:Active Family history of emphysema: Grandparent(V17.6, Z82.5) Status:Active Family history of malignant neoplasm of female breast: Grandparent(V16.3, Z80.3) Status:Active Unknown Family Member Name Dates Details Family history of thyroid di sease: Mother(V18.19, Z83.49) Status:Active No pertinent family history: Father(V49.89, Z78.9) Status:Active Family history of emphysema: Grandparent(V17.6, Z82.5) Status:Active Family history of malignant neoplasm of female breast: Grandparent(V16.3, Z80.3) Status:Active Unknown Family Member Name Dates Details Family history of thyroid di sease: Mother(V18.19, Z83.49) Status:Active No pertinent family history: Father(V49.89, Z78.9) Status:Active Family history of emphysema: Grandparent(V17.6, Z82.5) Status:Active Family history of malignant neoplasm of female breast: Grandparent(V16.3, Z80.3) Status:Active Unknown Family Member Name Dates Details Family history of thyroid di sease: Mother(V18.19, Z83.49) Status:Active No pertinent family history: Father(V49.89, Z78.9) Status:Active Family history of emphysema: Grandparent(V17.6, Z82.5) Status:Active Family history of malignant neoplasm of female breast: Grandparent(V16.3, Z80.3) Status:Active Unknown Family Member Name Dates Details Family history of thyroid di sease: Mother(V18.19, Z83.49) Status:Active No pertinent family history: Father(V49.89, Z78.9) Status:Active Family history of emphysema: Grandparent(V17.6, Z82.5) Status:Active Family history of malignant neoplasm of female breast: Grandparent(V16.3, Z80.3) Status:Active Advance Directives No Advanced Directives Records FoundNo Advanced Directives Records FoundNo Advanced Directives Records FoundNo Advanced Directives Records FoundNo Advanced Directives Records FoundNo Advanced Directives Records FoundNo Advanced Directives Records Found Chief Complaint 3-8WKS F/U W/LABS AND MEDS WANTED TO DISCUSS NEW MEDICATION...POSSIBLY CHANGING DUE TO NAUSEA, LIGHT HEADED FEELING...NO OTHER CONCERNS3 MONTH F/U WITH LABS. NO COMPLAINTS TODAY.6 MONTH F/U MED CHECK - NO COMPLAINTS TODAY.C/O WEIGHT GAIN Additional Source Comments INFORMATION SOURCE (unrecogn ized section and content) DATE CREATED AUTHOR AUTHOR'S ORGANIZ ATION 12/01/2018 [facility] DATE CREATED AUTHOR AUTHOR'S ORGANIZ ATION 04/10/2022 [employer] DATE CREATED AUTHOR AUTHOR'S ORGANIZ ATION 03/09/2023 [facility] DATE CREATED AUTHOR AUTHOR'S ORGANIZ ATION 03/10/2023 [facility] DATE CREATED AUTHOR AUTHOR'S ORGANIZ ATION 10/27/2023 [facility] DATE CREATED AUTHOR AUTHOR'S ORGANIZ ATION 10/28/2023 [facility] Reason for Visit (unrecogniz ed section and content) Reason Comments Follow-up 6 MONTH F/U WITH LAB S. NO CONCERNS Reason Comments Follow-up 1 MONTH FOLLOW UP Care Teams (unrecognized sec tion and content) Telesales Manager Relationship Specialty Start Date End Date Opal Trevizo PA-C [address] [place] [address] PCP - General 09/17/19 Luiz Mena MD [address] [place] [address] PCP - Qamar ACO PCP 01/25/23 Telesales Manager Relationship Specialty Start Date End Date Opal Trevizo PA-C [address] [place] [address] PCP - General 09/17/19 Luiz Mena MD [address] [place] [address] PCP - Qamar BROWN PCP 01/25/23 FOR RECORDS PERTAINING TO PATIENTS WHO ARE OR HAVE BEEN ENROLLED IN A CHEMICAL DEPENDENCY/SUBSTANCEABUSE PROGRAM, SOME INFORMATION MAY BE OMITTED. This clinical summary was aggregated from multiple sources. Caution should be exercised in using it in the provision of clinical care. This summary normalizes information from multiple sources, and as a consequence, information in this document may materially change the coding, format and clinical context of patient data. In addition, data may be omitted in some cases. CLINICAL DECISIONS SHOULD BE BASED ON THE PRIMARY CLINICAL RECORDS. [facility] [employer] [facility]. provides no warranty or guarantee of the accuracy or completeness of information in this document.
[2023-11-14 11:09] LABS: HPV APTIMA, High Risk Negative (Negative)
== END | disposition home or self-care (01) ==
LOC: LABSPEC 15:19
PROVIDERS: PCP Physician Assistant Medical; Visit Provider Nurse Practitioner Women's Health
DX: Z12.4 Encounter for screening for malignant neoplasm of cervix (principal)
CPT/HCPCS: 87624; 88175; G0145

== ENCOUNTER 2024-12-17 11:00 | Outpatient (RCR) | payer OTHER, SELFPAY | END 2024-12-24 23:59 | LOC: NS 11:00 | PROVIDERS: PCP Physician Assistant Medical; Referring Provider Physician Assistant Medical; Visit Provider Physician Assistant Medical | DX: Z71.3 Dietary counseling and surveillance (principal); E66.813 Obesity, class 3; Z68.41 Body mass index [BMI] 40.0-44.9, adult | CPT/HCPCS: 97802 ==

== ENCOUNTER 2025-02-09 15:53 | Outpatient (RCR) | payer OTHER, SELFPAY | END 2025-02-23 23:59 | LOC: NS 15:53 | PROVIDERS: PCP Physician Assistant Medical; Referring Provider Physician Assistant Medical; Visit Provider Physician Assistant Medical | DX: Z71.3 Dietary counseling and surveillance (principal); E66.813 Obesity, class 3; Z68.41 Body mass index [BMI] 40.0-44.9, adult; E66.01 Morbid (severe) obesity due to excess calories | CPT/HCPCS: 97803 ==